=== PATIENT | female | born 1945 | race Caucasian/White ===

== ENCOUNTER 2024-05-04 11:44 | Day surgery (SDC) | payer OTHER, MEDICARE ==
[2024-05-04 12:13] VITALS: BP 110/96; PULSE 73; RESP 18; TEMP 97.9
[2024-05-04] MEDS: ZOLEDRONIC ACID/MAN/WATER 5 MG/100 ML INFUS..BTL IVPB ONE (12:24)
[2024-05-04] MEDS: ACETAMINOPHEN 325 MG TABLET (FP) PO ONE (12:25)
== END 2024-05-04 13:20 | disposition home or self-care (01) ==
LOC: FINFUSION 11:44 → FM/S 11:47 → FINFUSION 13:20
PROVIDERS: ATTEND Internal Medicine Endocrinology, Diabetes & Metabolism
PROC: 3E033GC Introduction of Other Therapeutic Substance into Peripheral Vein, Percutaneous Approach (ICD-10-PCS; principal; 2024-05-04)
DX: M81.8 Other osteoporosis without current pathological fracture (principal)
CPT/HCPCS: 96365; J3489